=== PATIENT | female | born 1975 | race African-American/Black ===

== ENCOUNTER 2021-05-08 21:59 | Observation (INO) | payer OTHER ==
--- NOTE | 2021-05-08 22:25 | ED ---
Chest Pain HPI - General Chief Complaint: Chest Pain Stated Complaint: SOB Time Seen by Provider: 05/08/21 22:11 Source: patient Mode of arrival: wheelchair Limitations: no limitations - History of Present Illness Initial Comments: This patient is a 46-year-old woman who states she has history of asthma and states she is feeling like she is having a flareup. Patient states she is having nonproductive cough, wheezing, chest tightness. She indicates the sternal area. She states it feels typical of a flareup. No fever or chills. No sputum. No anginal symptoms. No leg pain or swelling. No change in urination or bowel movements. Patient states she thinks that it's because she had a relapse in smoking. MD Complaint: chest pain -: days(s) Onset: during rest Pain Location: substernal Pain Radiation: none Severity: moderate Quality: tightness Consistency: constant Improves With: nothing Worsens With: nothing Anginal Symptoms: dyspnea Other Symptoms: cough Treatments Prior to Arrival: none - Related Data Allergies Allergy/AdvReac Type Severity Reaction Status Date / Time acetaminophen [From Vicodin] AdvReac Nausea Verified 05/08/21 22:08 hydrocodone [From Vicodin] AdvReac Nausea Verified 05/08/21 22:08 Review of Systems ROS Statement: Those systems with pertinent positive or pertinent negative responses have been documented in the HPI. ROS Other: All systems not noted in ROS Statement are negative. Constitutional: Denies: fever, chills ENT: Denies: congestion Respiratory: Reports: as per HPI, cough, dyspnea, wheezes. Denies: hemoptysis Cardiovascular: Reports: as per HPI, chest pain. Denies: palpitations, orthopnea, edema, syncope Gastrointestinal: Denies: abdominal pain, nausea, vomiting, diarrhea Genitourinary: Denies: dysuria, hematuria Musculoskeletal: Denies: back pain Skin: Denies: rash Neurological: Denies: headache, weakness, numbness EKG Findings - EKG Results: EKG: interpreted by RASHID, sinus rhythm, normal axis, normal ST/T EKG shows: tachycardia (Rate 102 BPM) - Blocks, [place], Hypertrophy, ST Abn: Chamber hypertrophy or enlargement: left ventricular hypertrophy or enlargement (LVE) - NC, Pacemaker, Normal: Myocardial infarction: septal NC (old age or indeterminate) (Possible old septal infarct.) Past Medical History Past Medical History: Asthma, Diabetes Mellitus, Hypertension History of Any Multi-Drug Resistant Organisms: None Reported Past Surgical History: Section, Cholecystectomy Additional Past Surgical History / Comment(s): thyroidectomy Past Psychological History: Anxiety, Depression Smoking Status: Current every day smoker Past Alcohol Use History: Rare Past Drug Use History: Cocaine, Marijuana General Exam Limitations: no limitations General appearance: alert, in no apparent distress Head exam: Present: atraumatic, normocephalic Eye exam: Present: normal appearance. Absent: scleral icterus, conjunctival injection ENT exam: Present: normal oropharynx Neck exam: Present: normal inspection Respiratory exam: Present: wheezes (Trace wheeze). Absent: respiratory distress, rales, rhonchi, stridor, accessory muscle use, decreased breath sounds Cardiovascular Exam: Present: regular rate, normal rhythm, normal heart sounds. Absent: systolic murmur, diastolic murmur, rubs, gallop GI/Abdominal exam: Present: soft. Absent: distended, tenderness, guarding, rebound, rigid, mass Extremities exam: Present: normal inspection, normal capillary refill. Absent: pedal edema, calf tenderness Back exam: Present: normal inspection. Absent: CVA tenderness (R), CVA tenderness (L) Neurological exam: Present: alert. Absent: oriented X3, CN II-XII intact Skin exam: Present: warm, dry, intact, normal color. Absent: rash Course Vital Signs 05/08/21 05/08/21 05/08/21 22:01 22:33 23:32 Temperature 98.0 F Pulse Rate 103 H 86 Pulse Rate [ 105 H Left Pulse Oximetery] Respiratory 22 22 Rate Blood Pressure 145/97 O2 Sat by Pulse 100 Oximetry 05/08/21 05/09/21 23:47 01:26 Temperature 99.0 F Pulse Rate 88 88 Pulse Rate [ Left Pulse Oximetery] Respiratory 20 Rate Blood Pressure 179/104 O2 Sat by Pulse 100 Oximetry Disposition Clinical Impression: Chest pain Disposition: ADMITTED IP TO THIS HOSP Condition: Good Instructions (If sedation given, give patient instructions): Chest Pain (ED) Is patient prescribed a controlled substance at d/c from ED?: No Referrals: Etta Smith MD [Primary Care Provider] - 1-2 days
[2021-05-08] MEDS ORDERED: ALBUTEROL NEBULIZED 2.5 MG/3 ML INHALATION STA (22:33)
--- NOTE | 2021-05-08 22:59 | XR ---
EXAMINATION TYPE: XR chest 2V DATE OF EXAM: 05/08/2021 COMPARISON: NONE HISTORY: Short of breath TECHNIQUE: FINDINGS: Heart and mediastinum are normal. Lungs are clear. Diaphragm is normal. Bony thorax appears normal. There are chest leads. IMPRESSION: Normal chest.
[2021-05-08 23:02] LABS: Basophils % (A) 1 %; Eosinophils % (A) 1 %; HCT 42.7 % (34.0-46.0); HGB 14.4 gm/dL (11.4-16.0); Lymphocytes # (A) 2.5 k/uL (1.0-4.8); Lymphocytes % (A) 31 %; MCH 27.9 pg (25.0-35.0); MCHC 33.7 g/dL (31.0-37.0); MCV 82.9 fL (80.0-100.0); Mean Platelet Volume 7.4; Monocytes # (A) 0.5 k/uL (0-1.0); Monocytes % (A) 6 %; Neutrophils # (A) 4.8 k/uL (1.3-7.7); Neutrophils % (A) 60 %; Platelet Count 278 k/uL (150-450); RBC 5.16 m/uL (3.80-5.40); RDW 13.8 % (11.5-15.5)
[2021-05-08 23:21] LABS: Albumin 4.6 g/dL (3.5-5.0); Calcium 9.8 mg/dL (8.4-10.2); Potassium 2.8 mmol/L (3.5-5.1); Total Bilirubin 0.2 mg/dL (0.2-1.3); Total Protein 7.9 g/dL (6.3-8.2)
[2021-05-08 23:23] LABS: Partial Thromboplastin Time 22.4 sec (22.0-30.0); Prothrombin Time 10.4 sec (9.0-12.0)
[2021-05-09] MEDS ORDERED: SODIUM CHLORIDE 0.9% 500 ML 500 ML IV STA (00:23)
[2021-05-09] MEDS ORDERED: POTASSIUM BICARBONATE/CIT AC 20 MEQ TABLET.EFF PO ONE (01:00)
[2021-05-09] MEDS ORDERED: amLODIPine 10 MG TAB PO STA (01:29)
[2021-05-09] MEDS ORDERED: NITROGLYCERIN SL TABS 0.4 MG TAB SUBLINGUAL PRN (01:36)
[2021-05-09 06:14] VITALS: TEMP 99.2
[2021-05-09] MEDS: ALBUTEROL NEBULIZED 2.5 MG/3 ML INHALATION SCH ×3 (08:18→15:06)
[2021-05-09] MEDS ORDERED: amLODIPine 10 MG TAB PO SCH (09:00)
--- NOTE | 2021-05-09 09:27 | P.CRDCN ---
History of Present Illness Consult date: 05/09/21 History of present illness: HISTORY OF PRESENT ILLNESS: This is a 46-year-old female with a past medical history significant for hypertension, diabetes mellitus, asthma, and nicotine dependence. Patient is unaware of family history of cardiac disease as she was adopted. Patient recently established in the office with Dr. Packer who recommended echocardiogram and stress test. We have been asked to see the patient in consultation for pain. Patient examined at the bedside. Patient states she has been feeling short of breath since Sunday. She states she was having an "asthma attack". She states her shortness of breath was causing her increased anxiety which further worsened her shortness of breath. She states she was using her inhalers at home with minimal relief so she came to the emergency room for further evaluation. She reports a frequent nonproductive cough. She reports her chest feels sore this morning from coughing. Chest wall is tender with palpation. She states the pain is not worse with deep inspiration. Patient reports getting a nebulizer treatment this morning which resolved her shortness of breath. EKG reveals sinus tachycardia with nonspecific ST-T wave changes. Evidence of LVH Chest xray negative for acute process Laboratory data: WBC 8.0. Hemoglobin 14.4. Palate count 278. D-dimer 0.42. Sodium 144. Potassium 2.8. BUN 10. Creatinine 0.91. Lactic acid 2.4. Repeat 1.9. BNP 41. Troponin negative 3. Current home cardiac medications include hydrochlorothiazide 25 mg daily and Norvasc 5 mg daily REVIEW OF SYSTEMS: At the time of my exam: CONSTITUTIONAL: Denies fever or chills. HEENT: Denies blurred vision, vision changes, or eye pain. Denies hemoptysis CARDIOVASCULAR: Denies chest pain. Denies orthopnea. Denies PND. Denies palpitations RESPIRATORY: Reports mild shortness of breath. Reports nonproductive cough. GASTROINTESTINAL: Denies abdominal pain. Denies nausea or vomiting. HEMATOLOGIC: Denies bleeding disorders. GENITOURINARY: Denies any blood in urine. SKIN: Denies pruitis. Denies rash. PHYSICAL EXAM: VITAL SIGNS: Reviewed. GENERAL: Well-developed in no acute distress. HEENT: Head is normocephalic. Pupils are equal, round. Sclerae anicteric. Mucous membranes of the mouth are moist. Neck supple. No JVD or thyromegaly LUNGS: Respirations even and unlabored. Lungs diminished bilaterally with no wheezing or rales noted. HEART: Regular rate and rhythm. S1 and S2 heard. Chest wall tenderness with palpation ABDOMEN: Soft. Nondistended. Nontender. EXTREMITIES: Normal range of motion. No clubbing or cyanosis. Peripheral pulses intact. No lower extremity edema NEUROLOGIC: Awake and alert. Oriented x 3. ASSESSMENT: Shortness of breath Asthma exacerbation Chest pain, atypical, troponin negative 3 Elevated lactic acid Hypokalemia Hypertension Diabetes mellitus Nicotine dependence, patient smokes 1/2 PPD PLAN: An acute coronary event has been ruled out Obtain 2-D echo to assess cardiac structure and function Smoking cessation recommended Recheck potassium. Replace as needed Monitor blood pressure. Norvasc has been increased per emergency room physician to 10 mg daily Patient to undergo outpatient stress test Further recommendations pending patient's course Nurse practitioner note has been reviewed by physician. Signing provider agrees with the documented findings, assessment, and plan of care. Past Medical History Past Medical History: Asthma, Diabetes Mellitus, Hypertension History of Any Multi-Drug Resistant Organisms: None Reported Past Surgical History: Section, Cholecystectomy Additional Past Surgical History / Comment(s): thyroidectomy Past Psychological History: Anxiety, Depression Smoking Status: Current every day smoker Past Alcohol Use History: Rare Past Drug Use History: Cocaine, Marijuana Medications and Allergies Home Medications Medication Instructions Recorded Confirmed Type Albuterol Sulfate [Ventolin HFA] 2 puff INHALATION RT-Q6H PRN 05/09/21 05/09/21 History Ergocalciferol (Vitamin D2) 1,250 mcg PO Q14D 05/09/21 05/09/21 History [Drisdol (50,000 Iu)] Naproxen 500 mg PO DAILY PRN 05/09/21 05/09/21 History amLODIPine [Norvasc] 5 mg PO DAILY 05/09/21 05/09/21 History busPIRone HCl [Buspar] 10 mg PO BID PRN 05/09/21 05/09/21 History hydroCHLOROthiazide [Hydrodiuril] 25 mg PO DAILY 05/09/21 05/09/21 History metFORMIN HCL [Glucophage] 500 mg PO DAILY 05/09/21 05/09/21 History Allergies Allergy/AdvReac Type Severity Reaction Status Date / Time acetaminophen [From Vicodin] AdvReac Nausea Verified 05/08/21 22:08 hydrocodone [From Vicodin] AdvReac Nausea Verified 05/08/21 22:08 Physical Exam Vitals: Vital Signs Temp Pulse Pulse Resp BP Pulse Ox 05/09/21 08:21 86 05/09/21 08:17 86 16 154/102 95 05/09/21 06:05 99.2 F 104 H 20 141/69 100 05/09/21 01:26 99.0 F 88 20 179/104 100 05/08/21 23:47 88 05/08/21 23:32 86 05/08/21 22:33 105 H 22 05/08/21 22:01 98.0 F 103 H 22 145/97 100 Intake and Output 05/08/21 05/09/21 05/09/21 22:59 06:59 14:59 Other: Weight 86.183 kg Results 05/08/21 22:43 05/08/21 22:43 Cardiac Enzymes 05/08/21 05/08/21 05/09/21 Range/Units 22:43 22:43 02:10 AST 33 (14-36) U/L Troponin I 0.015 0.026 (0.000-0.034) ng/mL 05/09/21 Range/Units 04:23 AST (14-36) U/L Troponin I 0.032 (0.000-0.034) ng/mL Coagulation 05/08/21 Range/Units 22:43 PT 10.4 (9.0-12.0) sec APTT 22.4 (22.0-30.0) sec CBC 05/08/21 Range/Units 22:43 WBC 8.0 (3.8-10.6) k/uL RBC 5.16 (3.80-5.40) m/uL Hgb 14.4 (11.4-16.0) gm/dL Hct 42.7 (34.0-46.0) % Plt Count 278 (150-450) k/uL Comprehensive Metabolic Panel 05/08/21 Range/Units 22:43 Sodium 144 (137-145) mmol/L Potassium 2.8 L (3.5-5.1) mmol/L Chloride 106 (98-107) mmol/L Carbon Dioxide 27 (22-30) mmol/L BUN 10 (7-17) mg/dL Creatinine 0.91 (0.52-1.04) mg/dL Glucose 112 H (74-99) mg/dL Calcium 9.8 (8.4-10.2) mg/dL AST 33 (14-36) U/L ALT 19 (4-34) U/L Alkaline Phosphatase 87 (38-126) U/L Total Protein 7.9 (6.3-8.2) g/dL Albumin 4.6 (3.5-5.0) g/dL Current Medications Generic Name Dose Route Start Last Admin Trade Name Freq PRN Reason Stop Dose Admin Albuterol Sulfate 2.5 mg 05/09/21 08:00 05/09/21 08:18 Albuterol Nebulized 2.5 Mg/3 Ml INHALATION 2.5 mg RT-QID OSCAR Administration Amlodipine Besylate 10 mg 05/09/21 09:00 05/09/21 08:18 Amlodipine 10 Mg Tab PO 10 mg DAILY OSCAR Administration Aspirin 81 mg 05/10/21 09:00 Aspirin 81 Mg PO DAILY [facility] Nitroglycerin 0.4 mg 05/09/21 01:36 Nitroglycerin Sl Tabs 0.4 Mg Tab SUBLINGUAL Q5M PRN Chest Pain Intake and Output 05/08/21 05/09/21 05/09/21 22:59 06:59 14:59 Other: Weight 86.183 kg 05/08/21 22:43 05/08/21 22:43
[2021-05-09] MEDS ORDERED: busPIRone HCl 10 MG TAB PO PRN (10:02)
[2021-05-09] MEDS ORDERED: POTASSIUM CHLORIDE ER 20 MEQ TAB.ER PO STA (10:02)
[2021-05-09] MEDS ORDERED: ALBUTEROL NEBULIZED 2.5 MG/3 ML INHALATION PRN (10:02)
[2021-05-09] MEDS ORDERED: NAPROXEN 250 MG TAB PO PRN (10:02)
[2021-05-09] MEDS ORDERED: amLODIPine 5 MG TAB PO SCH (10:15)
[2021-05-09 10:40] VITALS: RESP 18
[2021-05-09] MEDS ORDERED: POTASSIUM CHLORIDE ER 20 MEQ TAB.ER PO ONE (11:45)
[2021-05-09 11:54] LABS: African American GFR (CKD) 103.2 (60.0-200.0); Anion Gap 11.5 mmol/L (4.00-12.00); BUN/Creat Ratio 11.25 Ratio (12.00-20.00); Calcium 9.1 mg/dL (8.7-10.3); Carbon Dioxide 27.5 mmol/L (21.6-31.8); Magnesium 1.9 mg/dL (1.5-2.4); Potassium 3.2 mmol/L (3.5-5.5)
--- NOTE | 2021-05-09 14:08 | P.HPIM ---
History of Present Illness 46-year-old pleasant female with known history of asthma and medical ALLERGIES came in with the comments of shortness of breath was wheezing yesterday and patient had significant improvement in her shortness of breath after a breathing treatments. Patient is not wheezing today clinically doing well and wanted to go home. Patient also comparing a pressure-like chest pain in the epigastric and retrosternal area appears to be secondary to bronchospasm this is relieved with the breathing treatments. 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 Patient is also severely hyponatremic potassium will be replaced and patient is on hydrochlorothiazide, patient will need potassium supplementation with this medication. Was comparing of cough with whitish sputum production. Review of Systems REVIEW OF SYSTEMS: CONSTITUTIONAL: No fever, no malaise, no fatigue. HEENT: No recent visual problems or hearing problems. Denied any sore throat. CARDIOVASCULAR: No chest pain, orthopnea, PND, no palpitations, no syncope. PULMONARY: no hemoptysis. GASTROINTESTINAL: No diarrhea, no nausea, no vomiting, no abdominal pain. NEUROLOGICAL: No headaches, no weakness, no numbness. HEMATOLOGICAL: Denies any bleeding or petechiae. GENITOURINARY: Denies any burning micturition, frequency, or urgency. MUSCULOSKELETAL/RHEUMATOLOGICAL: Denies any joint pain, swelling, or any muscle pain. ENDOCRINE: Denies any polyuria or polydipsia. The rest of the 14-point review of systems is negative. Past Medical History Past Medical History: Asthma, Cancer, Diabetes Mellitus, Hypertension, Thyroid Disorder Additional Past Medical History / Comment(s): Thyroid cancer with surgery, NIDDM type II, neuropathy back of bilateral lower legs and R arm, R eye deviates since /vision is normal, low back pain/sciatica, occasional vertigo. History of Any Multi-Drug Resistant Organisms: None Reported Past Surgical History: Section, Cholecystectomy Additional Past Surgical History / Comment(s): Thyroid/90% removed, back injections. Past Anesthesia/Blood Transfusion Reactions: No Reported Reaction Smoking Status: Current every day smoker - Past Family History Father Family Medical History: Liver Disease Additional Family Medical History / Comment(s): Father of liver cirrhosis/ETOH abuse and at the age of 56yrs. Mother Additional Family Medical History / Comment(s): Mother had anemia and of a CT at the age of 36yrs. Medications and Allergies Home Medications Medication Instructions Recorded Confirmed Type Albuterol Sulfate [Ventolin HFA] 2 puff INHALATION RT-Q6H PRN 05/09/21 05/09/21 History Ergocalciferol (Vitamin D2) 1,250 mcg PO Q14D 05/09/21 05/09/21 History [Drisdol (50,000 Iu)] Mometasone/Formoterol [Dulera 100 1 puff PO BID #1 inhaler 05/09/21 Rx Mcg-5 Mcg Inhaler] Naproxen 500 mg PO DAILY PRN 05/09/21 05/09/21 History Potassium Chloride ER [K-Dur 20] 20 meq PO DAILY #30 tab 05/09/21 Rx amLODIPine [Norvasc] 5 mg PO DAILY 05/09/21 05/09/21 History busPIRone HCl [Buspar] 10 mg PO BID PRN 05/09/21 05/09/21 History glipiZIDE XL [Glucotrol XL] 5 mg PO DAILY #10 tab 05/09/21 Rx hydroCHLOROthiazide [Hydrodiuril] 25 mg PO DAILY 05/09/21 05/09/21 History metFORMIN HCL [Glucophage] 500 mg PO DAILY 05/09/21 05/09/21 History methylPREDNISolone Dose Pack 4 mg PO DIRECTED #21 package 05/09/21 Rx [Medrol Dose Pack] Allergies Allergy/AdvReac Type Severity Reaction Status Date / Time acetaminophen [From Vicodin] AdvReac Nausea Verified 05/08/21 22:08 hydrocodone [From Vicodin] AdvReac Nausea Verified 05/08/21 22:08 Physical Exam Vitals: Vital Signs Temp Pulse Pulse Resp BP Pulse Ox 05/09/21 10:39 102 H 18 155/105 98 05/09/21 08:21 86 05/09/21 08:17 86 16 154/102 95 05/09/21 06:05 99.2 F 104 H 20 141/69 100 05/09/21 01:26 99.0 F 88 20 179/104 100 05/08/21 23:47 88 05/08/21 23:32 86 05/08/21 22:33 105 H 22 05/08/21 22:01 98.0 F 103 H 22 145/97 100 Intake and Output 05/08/21 05/09/21 05/09/21 22:59 06:59 14:59 Other: Weight 86.183 kg 86.183 kg PHYSICAL EXAMINATION: GENERAL: The patient is alert and oriented x3, not in any acute distress. Well developed, well nourished. HEENT: Pupils are round and equally reacting to light. EOMI. No scleral icterus. No conjunctival pallor. Normocephalic, atraumatic. No pharyngeal erythema. No thyromegaly. CARDIOVASCULAR: S1 and S2 present. No murmurs, rubs, or gallops. PULMONARY: Chest is clear to auscultation, no wheezing or crackles. ABDOMEN: Soft, nontender, nondistended, normoactive bowel sounds. No palpable organomegaly. MUSCULOSKELETAL: No joint swelling or deformity. EXTREMITIES: No cyanosis, clubbing, or pedal edema. NEUROLOGICAL: Gross neurological examination did not reveal any focal deficits. SKIN: No rashes. Results CBC & Chem 7: 05/08/21 22:43 05/09/21 08:42 Labs: Abnormal Lab Results - Last 24 Hours (Table) 05/08/21 05/08/21 05/09/21 Range/Units 22:43 22:43 08:42 Potassium 2.8 L 3.2 L (3.5-5.1) mmol/L BUN/Creatinine Ratio 11.25 L (12.00-20.00) Ratio Glucose 112 H 151 H (74-99) mg/dL Plasma Lactic Acid Sulaiman 2.4 H* (0.7-2.0) mmol/L Thrombosis Risk Factor Assmnt - Choose All That Apply Any of the Below Risk Factors Present?: Yes Each Factor Represents 1 point: Age 41-60 years, Obesity (BMI >25) Other Risk Factors: Yes Each Risk Factor Represents 2 Points: Malignancy Other congenital or acquired thrombophilia - If yes, enter type in comment: No Thrombosis Risk Factor Assessment Total Risk Factor Score: 4 Thrombosis Risk Factor Assessment Level: Moderate Risk Assessment and Plan Plan: -Shortness of breath: Secondary to asthma exacerbation patient hasn't been improvement, will be discharged on Medrol Dosepak along with Medrol Dosepak patient was given a glipizide and patient will continue his glipizide as long as she is on steroids. Patient was discharged on inhaled steroids and patient will continue with her albuterol inhaler. Patient appears to have moderate intermittent asthma. -Chest pressure like sensation secondary to bronchospasm rule out acute coronary syndromes patient will undergo stress test as an outpatient -Hypokalemia secondary to hydrochlorothiazide. Patient was discharged on potassium chloride supplementation. Repeat basic metabolic profile will be obtained in 3 days -Hypertension - mild lactic acidosis secondary to intravascular depletion, improved with IV fluids. He is also on metformin. Metformin can cause lactic acidosis and not discontinue this medication at this time but need to repeat lactic acid again as an outpatient and the patient can use to have lactic acidosis consider discontinuation of metformin at that time. Patient will be discharged today
--- NOTE | 2021-05-09 14:08 | P.DS ---
Providers Date of admission: 05/09/21 01:36 Attending physician: Sahil Milan Consults: 05/09/21 01:36 Consult Physician Routine Consulting Provider: Donald Siu Consult Reason/Comments: atypical chest pain Do you want consulting provider notified?: Yes Primary care physician: [facility] Course: As mentioned in HPI Patient Condition at Discharge: Good Plan - Discharge Summary Discharge Rx Participant: No New Discharge Prescriptions: New methylPREDNISolone Dose Pack [Medrol Dose Pack] 4 mg PO DIRECTED #21 package Mometasone/Formoterol [Dulera 100 Mcg-5 Mcg Inhaler] 1 puff PO BID #1 inhaler Potassium Chloride ER [K-Dur 20] 20 meq PO DAILY #30 tab glipiZIDE XL [Glucotrol XL] 5 mg PO DAILY #10 tab Continue Albuterol Sulfate [Ventolin HFA] 2 puff INHALATION RT-Q6H PRN PRN Reason: Shortness Of Breath Naproxen 500 mg PO DAILY PRN PRN Reason: Pain Ergocalciferol (Vitamin D2) [Drisdol (50,000 Iu)] 1,250 mcg PO Q14D hydroCHLOROthiazide [Hydrodiuril] 25 mg PO DAILY busPIRone HCl [Buspar] 10 mg PO BID PRN PRN Reason: Anxiety amLODIPine [Norvasc] 5 mg PO DAILY metFORMIN HCL [Glucophage] 500 mg PO DAILY Discharge Medication List Albuterol Sulfate [Ventolin HFA] 2 puff INHALATION RT-Q6H PRN 05/09/21 [History] Ergocalciferol (Vitamin D2) [Drisdol (50,000 Iu)] 1,250 mcg PO Q14D 05/09/21 [History] Mometasone/Formoterol [Dulera 100 Mcg-5 Mcg Inhaler] 1 puff PO BID #1 inhaler 05/09/21 [Rx] Naproxen 500 mg PO DAILY PRN 05/09/21 [History] Potassium Chloride ER [K-Dur 20] 20 meq PO DAILY #30 tab 05/09/21 [Rx] amLODIPine [Norvasc] 5 mg PO DAILY 05/09/21 [History] busPIRone HCl [Buspar] 10 mg PO BID PRN 05/09/21 [History] glipiZIDE XL [Glucotrol XL] 5 mg PO DAILY #10 tab 05/09/21 [Rx] hydroCHLOROthiazide [Hydrodiuril] 25 mg PO DAILY 05/09/21 [History] metFORMIN HCL [Glucophage] 500 mg PO DAILY 05/09/21 [History] methylPREDNISolone Dose Pack [Medrol Dose Pack] 4 mg PO DIRECTED #21 package 05/09/21 [Rx] Follow up Appointment(s)/Referral(s): Etta Smith MD [Primary Care Provider] - 3 Days Nicolás Packer MD [STAFF PHYSICIAN] - 1 Week Ambulatory/Diagnostic Orders: Basic Metabolic Panel [LAB.AMB] Time Frame: 3 Days, Location: None Selected Patient Instructions/Handouts: Chest Pain (ED)
[2021-05-09 15:34] VITALS: BP 126/99; PULSE 96
[2021-05-10] MEDS ORDERED: metFORMIN 500 MG TAB PO SCH (07:30)
[2021-05-10] MEDS ORDERED: hydroCHLOROthiazide 25 MG TAB PO SCH (09:00)
[2021-05-10] MEDS ORDERED: ASPIRIN 325 MG TAB PO SCH (09:00)
[2021-05-10] MEDS ORDERED: ASPIRIN 81 MG PO SCH (09:00)
--- NOTE | 2021-05-10 11:03 | ECHOF ---
Referral Reason: MEASUREMENTS -------- HEIGHT: 154.9 cm WEIGHT: 86.2 kg BP: 155/105 RVIDd: 3.3 cm (< 3.3) IVSd: 1.8 cm (0.6 - 1.1) LVIDd: 3.8 cm (3.9 - 5.3) LVPWd: 1.6 cm (0.6 - 1.1) IVSs: 2.4 cm LVIDs: 2.3 cm LVPWs: 2.4 cm LAESV Index (A-L): 15.13 ml/m Ao Diam: 3.6 cm (2.0 - 3.7) AV Cusp: 2.0 cm (1.5 - 2.6) LA Diam: 3.6 cm (2.7 - 3.8) MV EXCURSION: 17.701 mm (> 18.000) MV EF SLOPE: 53 mm/s (70 - 150) EPSS: 0.6 cm MV E Anthony: 0.72 m/s MV DecT: 206 ms MV A Anthony: 1.00 m/s MV E/A Ratio: 0.72 RAP: 5.00 mmHg RVSP: 32.09 mmHg FINDINGS -------- Sinus rhythm. This was a technically adequate study. The left ventricular size is normal. There is severe concentric left ventricular hypertrophy. Ove rall left ventricular systolic function is normal with, an EF between 55 - 60 %. The diastolic fill ing pattern is normal for the age of the patient 12.68. The right ventricle is mildly enlarged. Normal LA size by volume 22+/-6 ml/m2. The right atrial size is normal. Interatrial and interventricular septum intact. The aortic valve is trileaflet, and appears structurally normal. No aortic stenosis or regurgitation. Normal appearing mitral valve. The tricuspid valve appears structurally normal. Mild tricuspid regurgitation present. Right vent ricular systolic pressure is normal at < 35 mmHg. The right ventricular systolic pressure, as measu red by Doppler, is 32.09mmHg. There is no pulmonic regurgitation present. The aortic root size is normal. IVC Not well visulized. There is no pericardial effusion. CONCLUSIONS -------- 1. There is severe concentric left ventricular hypertrophy. 2. Overall left ventricular systolic function is normal with, an EF between 55 - 60 %. 3. The right ventricle is mildly enlarged. 4. Normal LA size by volume 22+/-6 ml/m2. 5. The aortic valve is trileaflet, and appears structurally normal. No aortic stenosis or regurgitati on. 6. Normal appearing mitral valve. 7. Mild tricuspid regurgitation present. 8. There is no pericardial effusion. CHIROPRACTIC ASSISTANT: Katelyn Sterling RDCS
[2021-05-16] MEDS ORDERED: ERGOCALCIFEROL 1,250 MCG (50,000 IU) CAPSULE PO SCH (09:00)
== END 2021-05-09 15:35 | disposition home or self-care (01) ==
LOC: EC 21:59 → 6NMEDSUR 05-09 01:36
PROVIDERS: ADMIT Hospitalist; ATTEND Hospitalist
DX: J45.21 Mild intermittent asthma with (acute) exacerbation (principal); E87.2 Acidosis; E86.9 Volume depletion, unspecified; I11.9 Hypertensive heart disease without heart failure; E11.42 Type 2 diabetes mellitus with diabetic polyneuropathy; R07.89 Other chest pain; E89.0 Postprocedural hypothyroidism; E87.1 Hypo-osmolality and hyponatremia; F17.210 Nicotine dependence, cigarettes, uncomplicated; E87.6 Hypokalemia; T50.2X5A Adverse effect of carbonic-anhydrase inhibitors, benzothiadiazides and other diuretics, initial encounter; I25.2 Old myocardial infarction; M54.40 Lumbago with sciatica, unspecified side; I36.1 Nonrheumatic tricuspid (valve) insufficiency; F32.9 Major depressive disorder, single episode, unspecified; F41.9 Anxiety disorder, unspecified; E66.9 Obesity, unspecified; Z68.35 Body mass index [BMI] 35.0-35.9, adult; Q15.8 Other specified congenital malformations of eye; Z20.822 Contact with and (suspected) exposure to COVID-19; Z79.84 Long term (current) use of oral hypoglycemic drugs; Z79.1 Long term (current) use of non-steroidal anti-inflammatories (NSAID); Z79.899 Other long term (current) drug therapy; Z88.5 Allergy status to narcotic agent; Z88.6 Allergy status to analgesic agent; Z90.49 Acquired absence of other specified parts of digestive tract; Z85.850 Personal history of malignant neoplasm of thyroid; Z98.891 History of uterine scar from previous surgery; Z83.2 Family history of diseases of the blood and blood-forming organs and certain disorders involving the immune mechanism; Z82.49 Family history of ischemic heart disease and other diseases of the circulatory system; Z81.1 Family history of alcohol abuse and dependence; Z83.79 Family history of other diseases of the digestive system
CPT/HCPCS: 96360; 99285; 36415; 94640 ×2; 93005; 93306; 85379; 83880; 80053; 80048; 83605 ×2; 83735 ×2; 84484 ×2; 85025; 85610; 85730; 87635; 71046; G0378

== ENCOUNTER 2021-05-14 23:36 | Emergency (ER) | payer OTHER ==
[2021-05-14 23:42] VITALS: TEMP 97.2
[2021-05-15] MEDS ORDERED: SODIUM CHLORIDE 0.9% 1,000 ML IV STA (00:03)
[2021-05-15] MEDS ORDERED: LORazepam 2 MG/ML INJ IV STA (00:17)
--- NOTE | 2021-05-15 00:34 | ED ---
SOB HPI - General Chief Complaint: Shortness of Breath Stated Complaint: Chest Pain Time Seen by Provider: 05/14/21 23:53 Source: patient, EMS Mode of arrival: EMS Limitations: no limitations - History of Present Illness Initial Comments: 46 year-old female patient presents to the emergency department today for evaluation of shortness of breath and chest tightness. Patient states that she was walking home from the store when she started to have symptoms. She tried her inhaler, it didn't help so she called an ambulance. Patient states she is having tightness across her chest and into her left shoulder. States she was feeling nauseated and having sweats. She thinks she may be having an anxiety attack. States that she is out of her buspar. She also found that her blood sugar was elevated, states she was given metformin but has not taken it. States she was going to try to change her diet instead. She denies cough or congestion. Denies fever or chills. She was admitted last week for similar symptoms and underwent evaluation by cardiology. Patient denies any recent rash, fever, chills, abdominal pain, diarrhea, constipation, numbness, tingling, dizziness, weakness, hematuria, dysuria, urinary urgency, urinary frequency, headache, visual reyna ges, or any other complaints. - Related Data Home Medications Medication Instructions Recorded Confirmed Albuterol Sulfate [Ventolin HFA] 2 puff INHALATION RT-Q6H PRN 05/09/21 05/09/21 Ergocalciferol (Vitamin D2) 1,250 mcg PO Q14D 05/09/21 05/09/21 [Drisdol (50,000 Iu)] Naproxen 500 mg PO DAILY PRN 05/09/21 05/09/21 amLODIPine [Norvasc] 5 mg PO DAILY 05/09/21 05/09/21 busPIRone HCl [Buspar] 10 mg PO BID PRN 05/09/21 05/09/21 hydroCHLOROthiazide [Hydrodiuril] 25 mg PO DAILY 05/09/21 05/09/21 metFORMIN HCL [Glucophage] 500 mg PO DAILY 05/09/21 05/09/21 Previous Rx's Medication Instructions Recorded Mometasone/Formoterol [Dulera 100 1 puff PO BID #1 inhaler 05/09/21 Mcg-5 Mcg Inhaler] Potassium Chloride ER [K-Dur 20] 20 meq PO DAILY #30 tab 05/09/21 glipiZIDE XL [Glucotrol XL] 5 mg PO DAILY #10 tab 05/09/21 methylPREDNISolone Dose Pack 4 mg PO DIRECTED #21 package 05/09/21 [Medrol Dose Pack] busPIRone HCl [Buspar] 10 mg PO BID #60 tab 05/15/21 Allergies Allergy/AdvReac Type Severity Reaction Status Date / Time acetaminophen [From Vicodin] AdvReac Nausea Verified 05/14/21 23:41 hydrocodone [From Vicodin] AdvReac Nausea Verified 05/14/21 23:41 Review of Systems ROS Statement: Those systems with pertinent positive or pertinent negative responses have been documented in the HPI. ROS Other: All systems not noted in ROS Statement are negative. Past Medical History Past Medical History: Asthma, Cancer, Diabetes Mellitus, Hypertension, Thyroid Disorder Additional Past Medical History / Comment(s): Thyroid cancer with surgery, NIDDM type II, neuropathy back of bilateral lower legs and R arm, R eye deviates since /vision is normal, low back pain/sciatica, occasional vertigo. History of Any Multi-Drug Resistant Organisms: None Reported Past Surgical History: Section, Cholecystectomy Additional Past Surgical History / Comment(s): Thyroid/90% removed, back injections. Past Anesthesia/Blood Transfusion Reactions: No Reported Reaction Past Psychological History: Anxiety, Depression Smoking Status: Current every day smoker Past Alcohol Use History: Occasional Past Drug Use History: None Reported - Past Family History Father Family Medical History: Liver Disease Additional Family Medical History / Comment(s): Father of liver cirrhosis/ETOH abuse and at the age of 56yrs. Mother Additional Family Medical History / Comment(s): Mother had anemia and of a CT at the age of 36yrs. General Exam Limitations: no limitations General appearance: alert, in no apparent distress, other (This is a well-dev eloped, well-nourished adult female patient in no acute distress. Vital signs upon presentation are temperature 97.2F, pulse 66, respirations 18, blood pressure 185/108, O2 sat 98% on room air.) Eye exam: Present: normal appearance, PERRL, EOMI. Absent: scleral icterus, c onjunctival injection, periorbital swelling ENT exam: Present: normal exam, normal oropharynx, mucous membranes moist Respiratory exam: Present: normal lung sounds bilaterally. Absent: respiratory distress, wheezes, rales, rhonchi, stridor Cardiovascular Exam: Present: regular rate, normal rhythm, normal heart sounds. Absent: systolic murmur, diastolic murmur, rubs, gallop, clicks GI/Abdominal exam: Present: soft, normal bowel sounds. Absent: distended, tenderness, guarding, rebound, rigid Neurological exam: Present: alert, oriented X3, CN II-XII intact Psychiatric exam: Present: anxious. Absent: homicidal ideation, suicidal ideation Skin exam: Present: warm, dry, intact, normal color. Absent: rash Course Vital Signs 05/14/21 05/14/21 05/14/21 23:38 23:41 23:48 Temperature 97.2 F L Pulse Rate 66 Respiratory 16 Rate Blood Pressure 185/108 O2 Sat by Pulse 98 Oximetry 05/15/21 05/15/21 05/15/21 00:20 01:00 01:34 Temperature Pulse Rate Respiratory 18 Rate Blood Pressure 184/107 157/95 O2 Sat by Pulse 105 H Oximetry 05/15/21 02:00 Temperature Pulse Rate 110 H Respiratory 16 Rate Blood Pressure 146/86 O2 Sat by Pulse 98 Oximetry Medical Decision Making - Medical Decision Making 46-year-old female patient presents to the emergency department today for evaluation of chest tightness and shortness of breath that started while she was walking home from the store. Physical examination is unremarkable. Lungs are clear to auscultation with good air movement. Vital signs within normal range. EKG showed sinus rhythm with no ST elevation or depression. Labs reviewed and were unremarkable at than elevated blood sugar. Patient was recently diagnosed with type 2 diabetes, is currently taking steroids. Has not been taking any of her diabetes medication because she was unsure about side effects and other issu es related taking it. I did discuss findings and results with her. We did discuss taking her medication. I will refill her BuSpar for anxiety. She is instructed follow up with her primary care physician for recheck Sunday. Return parameters were discussed in detail. She verbalizes understanding and agrees with this plan. My attending is Dr. Augustin. - Lab Data Result diagrams: 05/15/21 00:41 05/15/21 00:41 Lab Results 05/15/21 05/15/21 05/15/21 Range/Units 00:41 00:41 00:41 WBC 9.8 (3.8-10.6) k/uL RBC 4.66 (3.80-5.40) m/uL Hgb 13.2 (11.4-16.0) gm/dL Hct 39.1 (34.0-46.0) % MCV 83.9 (80.0-100.0) fL MCH 28.4 (25.0-35.0) pg MCHC 33.8 (31.0-37.0) g/dL RDW 14.0 (11.5-15.5) % Plt Count 232 (150-450) k/uL MPV 7.9 Neutrophils % 82 % Lymphocytes % 12 % Monocytes % 4 % Eosinophils % 1 % Basophils % 0 % Neutrophils # 8.0 H (1.3-7.7) k/uL Lymphocytes # 1.2 (1.0-4.8) k/uL Monocytes # 0.4 (0-1.0) k/uL Eosinophils # 0.1 (0-0.7) k/uL Basophils # 0.0 (0-0.2) k/uL PT 10.0 (9.0-12.0) sec INR 0.9 (<1.2) APTT 21.4 L (22.0-30.0) sec Sodium 137 (137-145) mmol/L Potassium 4.0 (3.5-5.1) mmol/L Chloride 104 (98-107) mmol/L Carbon Dioxide 25 (22-30) mmol/L Anion Gap 8 mmol/L BUN 17 (7-17) mg/dL Creatinine 0.69 (0.52-1.04) mg/dL Est GFR (CKD-EPI)AfAm >90 (>60 ml/min/1.73 sqM) Est GFR (CKD-EPI)NonAf >90 (>60 ml/min/1.73 sqM) Glucose 258 H (74-99) mg/dL POC Glucose (mg/dL) (75-99) mg/dL POC Glu Blind Slat Stapling Machine Operator ID Calcium 9.3 (8.4-10.2) mg/dL Magnesium 2.0 (1.6-2.3) mg/dL Total Bilirubin <0.1 L (0.2-1.3) mg/dL AST 24 (14-36) U/L ALT 23 (4-34) U/L Alkaline Phosphatase 76 (38-126) U/L Troponin I (0.000-0.034) ng/mL Total Protein 7.3 (6.3-8.2) g/dL Albumin 4.2 (3.5-5.0) g/dL Acetone, Qual Negative (Negative) 05/15/21 05/15/21 05/15/21 Range/Units 00:41 02:04 02:42 WBC (3.8-10.6) k/uL RBC (3.80-5.40) m/uL Hgb (11.4-16.0) gm/dL Hct (34.0-46.0) % MCV (80.0-100.0) fL MCH (25.0-35.0) pg MCHC (31.0-37.0) g/dL RDW (11.5-15.5) % Plt Count (150-450) k/uL MPV Neutrophils % % Lymphocytes % % Monocytes % % Eosinophils % % Basophils % % Neutrophils # (1.3-7.7) k/uL Lymphocytes # (1.0-4.8) k/uL Monocytes # (0-1.0) k/uL Eosinophils # (0-0.7) k/uL Basophils # (0-0.2) k/uL PT (9.0-12.0) sec INR (<1.2) APTT (22.0-30.0) sec Sodium (137-145) mmol/L Potassium (3.5-5.1) mmol/L Chloride (98-107) mmol/L Carbon Dioxide (22-30) mmol/L Anion Gap mmol/L BUN (7-17) mg/dL Creatinine (0.52-1.04) mg/dL Est GFR (CKD-EPI)AfAm (>60 ml/min/1.73 sqM) Est GFR (CKD-EPI)NonAf (>60 ml/min/1.73 sqM) Glucose (74-99) mg/dL POC Glucose (mg/dL) 254 H 255 H (75-99) mg/dL POC Glu Blind Slat Stapling Machine Operator ID Joy Anaya McKenna Calcium (8.4-10.2) mg/dL Magnesium (1.6-2.3) mg/dL Total Bilirubin (0.2-1.3) mg/dL AST (14-36) U/L ALT (4-34) U/L Alkaline Phosphatase (38-126) U/L Troponin I <0.012 (0.000-0.034) ng/mL Total Protein (6.3-8.2) g/dL Albumin (3.5-5.0) g/dL Acetone, Qual (Negative) - Radiology Data Radiology results: report reviewed, image reviewed Disposition Clinical Impression: Shortness of breath, Chest tightness Disposition: HOME SELF-CARE Condition: Good Instructions (If sedation given, give patient instructions): Chest Pain (ED), Type 2 Diabetes in Adults: New Diagnosis (ED), Shortness of Breath (ED) Additional Instructions: Follow up with the primary care physician for recheck in 1-2 days. Take metformin as you have been prescribed. Return to the emergency department for any new, worsening, or concerning symptoms per Prescriptions: busPIRone HCl [Buspar] 10 mg PO BID #60 tab Is patient prescribed a controlled substance at d/c from ED?: No Referrals: Etta Smith MD [Primary Care Provider] - 1-2 days Time of Disposition: 02:49
--- NOTE | 2021-05-15 00:36 | XR ---
EXAMINATION TYPE: XR chest 2V DATE OF EXAM: 05/15/2021 COMPARISON: 05/08/2021 HISTORY: Short of breath TECHNIQUE: FINDINGS: There is no heart failure nor confluent pneumonic infiltrate. Costophrenic angles are clear . There are chest leads. The bony thorax is intact IMPRESSION: No active cardiopulmonary disease. No change.
[2021-05-15] MEDS ORDERED: hydrALAZINE HCL 20 MG/ML 1 ML VIAL IVP STA (00:47)
[2021-05-15 00:59] LABS: Basophils % (A) 0 %; Eosinophils # (A) 0.1 k/uL (0-0.7); Eosinophils % (A) 1 %; HCT 39.1 % (34.0-46.0); HGB 13.2 gm/dL (11.4-16.0); Lymphocytes # (A) 1.2 k/uL (1.0-4.8); Lymphocytes % (A) 12 %; MCH 28.4 pg (25.0-35.0); MCHC 33.8 g/dL (31.0-37.0); MCV 83.9 fL (80.0-100.0); Mean Platelet Volume 7.9; Monocytes # (A) 0.4 k/uL (0-1.0); Monocytes % (A) 4 %; Neutrophils % (A) 82 %; Platelet Count 232 k/uL (150-450); RBC 4.66 m/uL (3.80-5.40); WBC 9.8 k/uL (3.8-10.6)
[2021-05-15 01:10] LABS: ALT 23 U/L (4-34); AST 24 U/L (14-36); African American GFR (CKD) >90 (>60 ml/min/1.73 sqM); Albumin 4.2 g/dL (3.5-5.0); Alkaline Phosphatase 76 U/L (38-126); Anion Gap 8 mmol/L; Blood Urea Nitrogen 17 mg/dL (7-17); Calcium 9.3 mg/dL (8.4-10.2); Carbon Dioxide 25 mmol/L (22-30); Chloride 104 mmol/L (98-107); Glucose 258 mg/dL (74-99); Non-African American GFR(CKD) >90 (>60 ml/min/1.73 sqM); Sodium 137 mmol/L (137-145); Total Bilirubin <0.1 mg/dL (0.2-1.3); Total Protein 7.3 g/dL (6.3-8.2)
[2021-05-15] MEDS ORDERED: INSULIN ASPART (NovoLOG) 100 UNIT/ML VIAL SQ STA (01:13)
[2021-05-15 01:16] LABS: INR 0.9 (<1.2)
[2021-05-15 01:19] LABS: Partial Thromboplastin Time 21.4 sec (22.0-30.0)
[2021-05-15 02:08] LABS: Glucose,Whole Blood 254 mg/dL (75-99)
[2021-05-15 02:45] LABS: Glucose,Whole Blood 255 mg/dL (75-99)
[2021-05-15 03:10] VITALS: BP 153/97; PULSE 96; RESP 20
== END 2021-05-15 03:00 | disposition home or self-care (01) ==
LOC: EC 23:36
DX: R06.02 Shortness of breath (principal); R07.89 Other chest pain; E11.40 Type 2 diabetes mellitus with diabetic neuropathy, unspecified; I10 Essential (primary) hypertension; J45.909 Unspecified asthma, uncomplicated; F32.9 Major depressive disorder, single episode, unspecified; F41.9 Anxiety disorder, unspecified; F17.200 Nicotine dependence, unspecified, uncomplicated; Z79.84 Long term (current) use of oral hypoglycemic drugs; Z79.1 Long term (current) use of non-steroidal anti-inflammatories (NSAID); Z79.51 Long term (current) use of inhaled steroids; Z79.899 Other long term (current) drug therapy; Z85.850 Personal history of malignant neoplasm of thyroid
CPT/HCPCS: 96361 ×2; 96372 ×2; 96374 ×2; 96375 ×2; 99285 ×2; 36415; 93005; 80053; 82009; 83735; 84484; 85025; 85610; 85730; 71046; J2060; J0360

== ENCOUNTER 2021-05-22 14:59 | Emergency (ER) | payer OTHER ==
[2021-05-22 15:21] LABS: Glucose,Whole Blood 159 mg/dL (75-99)
[2021-05-22 15:22] VITALS: TEMP 98
[2021-05-22] MEDS ORDERED: MECLIZINE 12.5 MG TAB PO STA (15:37)
[2021-05-22] MEDS ORDERED: SODIUM CHLORIDE 0.9% 1,000 ML IV ONE (15:37)
--- NOTE | 2021-05-22 16:22 | ED ---
General Adult HPI - General Chief complaint: Recheck/Abnormal Lab/Rx Stated complaint: Hyperglycemia, Dizziness Time Seen by Provider: 05/22/21 15:32 Source: patient, RN notes reviewed, old records reviewed Mode of arrival: wheelchair Limitations: no limitations - History of Present Illness Initial comments: 46-year-old female presents for evaluation of dizziness, lightheadedness. No chest pain or palpitations. Patient has had similar symptoms in the past associated with vertigo. She did believe today that her sugar was high as she was recently diagnosed with diabetes but has unable to obtain testing supplies as an outpatient. She has an appointment on Sunday. She does admit to polyuria and states she believes she's not been drinking enough water. No focal numbness or weakness. No headache. - Related Data Home Medications Medication Instructions Recorded Confirmed Albuterol Sulfate [Ventolin HFA] 2 puff INHALATION RT-Q6H PRN 05/09/21 05/09/21 Ergocalciferol (Vitamin D2) 1,250 mcg PO Q14D 05/09/21 05/09/21 [Drisdol (50,000 Iu)] Naproxen 500 mg PO DAILY PRN 05/09/21 05/09/21 amLODIPine [Norvasc] 5 mg PO DAILY 05/09/21 05/09/21 busPIRone HCl [Buspar] 10 mg PO BID PRN 05/09/21 05/09/21 hydroCHLOROthiazide [Hydrodiuril] 25 mg PO DAILY 05/09/21 05/09/21 metFORMIN HCL [Glucophage] 500 mg PO DAILY 05/09/21 05/09/21 Previous Rx's Medication Instructions Recorded Mometasone/Formoterol [Dulera 100 1 puff PO BID #1 inhaler 05/09/21 Mcg-5 Mcg Inhaler] Potassium Chloride ER [K-Dur 20] 20 meq PO DAILY #30 tab 05/09/21 glipiZIDE XL [Glucotrol XL] 5 mg PO DAILY #10 tab 05/09/21 methylPREDNISolone Dose Pack 4 mg PO DIRECTED #21 package 05/09/21 [Medrol Dose Pack] busPIRone HCl [Buspar] 10 mg PO BID #60 tab 05/15/21 Allergies Allergy/AdvReac Type Severity Reaction Status Date / Time acetaminophen [From Vicodin] AdvReac Nausea Verified 05/22/21 16:20 hydrocodone [From Vicodin] AdvReac Nausea Verified 05/22/21 16:20 Review of Systems ROS Statement: Those systems with pertinent positive or pertinent negative responses have been documented in the HPI. ROS Other: All systems not noted in ROS Statement are negative. Past Medical History Past Medical History: Asthma, Cancer, Diabetes Mellitus, Hypertension, Thyroid Disorder Additional Past Medical History / Comment(s): Thyroid cancer with surgery, NIDDM type II, neuropathy back of bilateral lower legs and R arm, R eye deviates since /vision is normal, low back pain/sciatica, occasional vertigo. History of Any Multi-Drug Resistant Organisms: None Reported Past Surgical History: Section, Cholecystectomy Additional Past Surgical History / Comment(s): Thyroid/90% removed, back injections. Past Anesthesia/Blood Transfusion Reactions: No Reported Reaction Past Psychological History: Anxiety, Depression Smoking Status: Current every day smoker Past Alcohol Use History: Occasional Past Drug Use History: None Reported - Past Family History Father Family Medical History: Liver Disease Additional Family Medical History / Comment(s): Father of liver cirrhosis/ETOH abuse and at the age of 56yrs. Mother Additional Family Medical History / Comment(s): Mother had anemia and of a ND at the age of 36yrs. General Exam Limitations: no limitations General appearance: alert, in no apparent distress Head exam: Present: atraumatic, normocephalic Eye exam: Present: normal appearance, PERRL ENT exam: Present: mucous membranes dry Neck exam: Present: normal inspection. Absent: tenderness, meningismus Respiratory exam: Present: normal lung sounds bilaterally. Absent: respiratory distress, wheezes, rales Cardiovascular Exam: Present: regular rate, normal rhythm GI/Abdominal exam: Present: soft. Absent: distended, tenderness, guarding, rebound Extremities exam: Present: normal inspection, normal capillary refill. Absent: pedal edema, calf tenderness Neurological exam: Present: alert, oriented X3, CN II-XII intact. Absent: motor sensory deficit Psychiatric exam: Present: normal affect, normal mood Skin exam: Present: warm, dry, intact. Absent: cyanosis, diaphoretic Course Vital Signs 05/22/21 15:16 Temperature 98.0 F Pulse Rate 79 Respiratory 16 Rate Blood Pressure 130/83 O2 Sat by Pulse 100 Oximetry EKG Findings - EKG Comments: EKG Findings:: Normal sinus rhythm, LVH, rate of 69, MI interval 150, QRS duration 80, QTC [address] segment elevation. Medical Decision Making - Medical Decision Making 46-year-old female with dizziness, history of vertigo. Patient well-appearing with stable vitals. She was concerned about her blood sugar, blood sugar is 1:30. She does have a hypokalemia 3.2 and is on potassium replacement at home. She feels completely normal after IV hydration and meclizine. She will follow with her primary care physician. - Lab Data Result diagrams: 05/22/21 16:24 05/22/21 16:24 Lab Results 05/22/21 05/22/21 05/22/21 Range/Units 15:19 16:24 16:24 WBC 9.9 (3.8-10.6) k/uL RBC 5.34 (3.80-5.40) m/uL Hgb 15.2 (11.4-16.0) gm/dL Hct 44.3 (34.0-46.0) % MCV 82.9 (80.0-100.0) fL MCH 28.4 (25.0-35.0) pg MCHC 34.3 (31.0-37.0) g/dL RDW 13.7 (11.5-15.5) % Plt Count 260 (150-450) k/uL MPV 7.5 Neutrophils % 73 % Lymphocytes % 19 % Monocytes % 5 % Eosinophils % 1 % Basophils % 1 % Neutrophils # 7.2 (1.3-7.7) k/uL Lymphocytes # 1.9 (1.0-4.8) k/uL Monocytes # 0.5 (0-1.0) k/uL Eosinophils # 0.1 (0-0.7) k/uL Basophils # 0.1 (0-0.2) k/uL Sodium 137 (137-145) mmol/L Potassium 3.2 L (3.5-5.1) mmol/L Chloride 97 L (98-107) mmol/L Carbon Dioxide 30 (22-30) mmol/L Anion Gap 10 mmol/L BUN 20 H (7-17) mg/dL Creatinine 0.82 (0.52-1.04) mg/dL Est GFR (CKD-EPI)AfAm >90 (>60 ml/min/1.73 sqM) Est GFR (CKD-EPI)NonAf 87 (>60 ml/min/1.73 sqM) Glucose 130 H (74-99) mg/dL POC Glucose (mg/dL) 159 H (75-99) mg/dL POC Glu Supervisor [employer] ID Luz Maria Parry Calcium 10.2 (8.4-10.2) mg/dL Magnesium 2.2 (1.6-2.3) mg/dL Total Bilirubin 0.2 (0.2-1.3) mg/dL AST 27 (14-36) U/L ALT 24 (4-34) U/L Alkaline Phosphatase 85 (38-126) U/L Total Protein 8.1 (6.3-8.2) g/dL Albumin 4.7 (3.5-5.0) g/dL Urine Color Urine Appearance (Clear) Urine pH (5.0-8.0) Ur Specific [place] (1.001-1.035) Urine Protein (Negative) Urine Glucose (UA) (Negative) Urine Ketones (Negative) Urine Blood (Negative) Urine Nitrite (Negative) Urine Bilirubin (Negative) Urine Urobilinogen (<2.0) mg/dL Ur Leukocyte Esterase (Negative) 05/22/21 Range/Units 16:24 WBC (3.8-10.6) k/uL RBC (3.80-5.40) m/uL Hgb (11.4-16.0) gm/dL Hct (34.0-46.0) % MCV (80.0-100.0) fL MCH (25.0-35.0) pg MCHC (31.0-37.0) g/dL RDW (11.5-15.5) % Plt Count (150-450) k/uL MPV Neutrophils % % Lymphocytes % % Monocytes % % Eosinophils % % Basophils % % Neutrophils # (1.3-7.7) k/uL Lymphocytes # (1.0-4.8) k/uL Monocytes # (0-1.0) k/uL Eosinophils # (0-0.7) k/uL Basophils # (0-0.2) k/uL Sodium (137-145) mmol/L Potassium (3.5-5.1) mmol/L Chloride (98-107) mmol/L Carbon Dioxide (22-30) mmol/L Anion Gap mmol/L BUN (7-17) mg/dL Creatinine (0.52-1.04) mg/dL Est GFR (CKD-EPI)AfAm (>60 ml/min/1.73 sqM) Est GFR (CKD-EPI)NonAf (>60 ml/min/1.73 sqM) Glucose (74-99) mg/dL POC Glucose (mg/dL) (75-99) mg/dL POC Glu Supervisor [employer] Department ID Calcium (8.4-10.2) mg/dL Magnesium (1.6-2.3) mg/dL Total Bilirubin (0.2-1.3) mg/dL AST (14-36) U/L ALT (4-34) U/L Alkaline Phosphatase (38-126) U/L Total Protein (6.3-8.2) g/dL Albumin (3.5-5.0) g/dL Urine Color Light Yellow Urine Appearance Clear (Clear) Urine pH 6.0 (5.0-8.0) Ur Specific [place] 1.008 (1.001-1.035) Urine Protein Negative (Negative) Urine Glucose (UA) Negative (Negative) Urine Ketones Negative (Negative) Urine Blood Negative (Negative) Urine Nitrite Negative (Negative) Urine Bilirubin Negative (Negative) Urine Urobilinogen <2.0 (<2.0) mg/dL Ur Leukocyte Esterase Negative (Negative) Disposition Clinical Impression: Hypokalemia, Vertigo Disposition: HOME SELF-CARE Condition: Good Instructions (If sedation given, give patient instructions): Vertigo (ED) Is patient prescribed a controlled substance at d/c from ED?: No Referrals: Etta Smith MD [Primary Care Provider] - 1-2 days Time of Disposition: 17:01
[2021-05-22 16:37] LABS: Basophils # (A) 0.1 k/uL (0-0.2); Basophils % (A) 1 %; Eosinophils # (A) 0.1 k/uL (0-0.7); Eosinophils % (A) 1 %; HCT 44.3 % (34.0-46.0); HGB 15.2 gm/dL (11.4-16.0); Lymphocytes # (A) 1.9 k/uL (1.0-4.8); Lymphocytes % (A) 19 %; MCH 28.4 pg (25.0-35.0); MCHC 34.3 g/dL (31.0-37.0); MCV 82.9 fL (80.0-100.0); Mean Platelet Volume 7.5; Monocytes # (A) 0.5 k/uL (0-1.0); Monocytes % (A) 5 %; Neutrophils # (A) 7.2 k/uL (1.3-7.7); Neutrophils % (A) 73 %; Platelet Count 260 k/uL (150-450); RBC 5.34 m/uL (3.80-5.40); RDW 13.7 % (11.5-15.5); WBC 9.9 k/uL (3.8-10.6)
[2021-05-22 16:41] LABS: Appearance,Urine Clear (Clear); Bilirubin,Urine Negative (Negative); Blood,Urine Negative (Negative); Color,Urine Light Yellow; Glucose,Urine (UA) Negative (Negative); Ketones,Urine Negative (Negative); Leukocyte Esterase,Urine Negative (Negative); Nitrite,Urine Negative (Negative); Protein,Urine Negative (Negative); Specific Gravity,Urine 1.008 (1.001-1.035); Urobilinogen,Urine <2.0 mg/dL (<2.0)
[2021-05-22 16:46] LABS: ALT 24 U/L (4-34); AST 27 U/L (14-36); African American GFR (CKD) >90 (>60 ml/min/1.73 sqM); Albumin 4.7 g/dL (3.5-5.0); Alkaline Phosphatase 85 U/L (38-126); Anion Gap 10 mmol/L; Blood Urea Nitrogen 20 mg/dL (7-17); Calcium 10.2 mg/dL (8.4-10.2); Carbon Dioxide 30 mmol/L (22-30); Chloride 97 mmol/L (98-107); Glucose 130 mg/dL (74-99); Magnesium 2.2 mg/dL (1.6-2.3); Non-African American GFR(CKD) 87 (>60 ml/min/1.73 sqM); Potassium 3.2 mmol/L (3.5-5.1); Sodium 137 mmol/L (137-145); Total Bilirubin 0.2 mg/dL (0.2-1.3); Total Protein 8.1 g/dL (6.3-8.2)
[2021-05-22] MEDS ORDERED: POTASSIUM CHLORIDE ER 20 MEQ TAB.ER PO STA (16:55)
[2021-05-22 17:55] VITALS: BP 141/98; PULSE 81; RESP 18
== END 2021-05-22 17:57 | disposition home or self-care (01) ==
LOC: EC 14:59
DX: E87.6 Hypokalemia (principal); R42 Dizziness and giddiness; E11.40 Type 2 diabetes mellitus with diabetic neuropathy, unspecified; I10 Essential (primary) hypertension; J45.909 Unspecified asthma, uncomplicated; F32.9 Major depressive disorder, single episode, unspecified; F41.9 Anxiety disorder, unspecified; F17.200 Nicotine dependence, unspecified, uncomplicated; Z79.51 Long term (current) use of inhaled steroids; Z79.84 Long term (current) use of oral hypoglycemic drugs; Z79.899 Other long term (current) drug therapy; Z88.5 Allergy status to narcotic agent
CPT/HCPCS: 36415; 80053; 81003; 83735; 85025; 93005; 96360; 99284

== ENCOUNTER 2021-06-22 12:11 | Emergency (ER) | payer OTHER ==
[2021-06-22 12:25] LABS: Glucose,Whole Blood 137 mg/dL (75-99)
[2021-06-22 12:26] VITALS: TEMP 97.7
--- NOTE | 2021-06-22 14:31 | ED ---
Dizziness HPI - General Chief Complaint: Dizziness Stated Complaint: diabetic, near syncope Source: patient, RN notes reviewed Mode of arrival: ambulatory Limitations: no limitations - History of Present Illness Initial Comments: This is a 46-year-old female presents emergency Department chief complaint of episode of dizziness. Patient has long history of vertigo. Patient states she was at [facility] states that she went to pickle processor her belongings got dizzy. She states she was was spinning she suffered she doing symptoms are resolved she's been asymptomatic ever since. Denies chest pain shortness breath focal weakness nausea vomiting. Patient was also concerned about possible hyperglycemiatissue type 2 diabetic. Patient blood sugar 134. Patient states that she feels fine and needs he back [facility]. - Related Data Home Medications Medication Instructions Recorded Confirmed Albuterol Sulfate [Ventolin HFA] 2 puff INHALATION RT-Q6H PRN 05/09/21 05/09/21 Ergocalciferol (Vitamin D2) 1,250 mcg PO Q14D 05/09/21 05/09/21 [Drisdol (50,000 Iu)] Naproxen 500 mg PO DAILY PRN 05/09/21 05/09/21 amLODIPine [Norvasc] 5 mg PO DAILY 05/09/21 05/09/21 busPIRone HCl [Buspar] 10 mg PO BID PRN 05/09/21 05/09/21 hydroCHLOROthiazide [Hydrodiuril] 25 mg PO DAILY 05/09/21 05/09/21 metFORMIN HCL [Glucophage] 500 mg PO DAILY 05/09/21 05/09/21 Previous Rx's Medication Instructions Recorded Mometasone/Formoterol [Dulera 100 1 puff PO BID #1 inhaler 05/09/21 Mcg-5 Mcg Inhaler] Potassium Chloride ER [K-Dur 20] 20 meq PO DAILY #30 tab 05/09/21 glipiZIDE XL [Glucotrol XL] 5 mg PO DAILY #10 tab 05/09/21 methylPREDNISolone Dose Pack 4 mg PO DIRECTED #21 package 05/09/21 [Medrol Dose Pack] busPIRone HCl [Buspar] 10 mg PO BID #60 tab 05/15/21 Allergies Allergy/AdvReac Type Severity Reaction Status Date / Time acetaminophen [From Vicodin] AdvReac Nausea Verified 06/22/21 12:25 hydrocodone [From Vicodin] AdvReac Nausea Verified 06/22/21 12:25 Review of Systems ROS Statement: Those systems with pertinent positive or pertinent negative responses have been documented in the HPI. ROS Other: All systems not noted in ROS Statement are negative. Past Medical History Past Medical History: Asthma, Cancer, Diabetes Mellitus, Hypertension, Thyroid Disorder Additional Past Medical History / Comment(s): Thyroid cancer with surgery, NIDDM type II, neuropathy back of bilateral lower legs and R arm, R eye deviates since /vision is normal, low back pain/sciatica, occasional vertigo. History of Any Multi-Drug Resistant Organisms: None Reported Past Surgical History: Section, Cholecystectomy Additional Past Surgical History / Comment(s): Thyroid/90% removed, back injections. Past Anesthesia/Blood Transfusion Reactions: No Reported Reaction Past Psychological History: Anxiety, Depression Smoking Status: Current every day smoker Past Alcohol Use History: Occasional Past Drug Use History: None Reported - Past Family History Father Family Medical History: Liver Disease Additional Family Medical History / Comment(s): Father of liver cirrhosis/ETOH abuse and at the age of 56yrs. Mother Additional Family Medical History / Comment(s): Mother had anemia and of a HI at the age of 36yrs. General Exam Limitations: no limitations General appearance: alert, in no apparent distress Head exam: Present: atraumatic, normocephalic, normal inspection Eye exam: Present: normal appearance, PERRL, EOMI. Absent: scleral icterus, conjunctival injection, periorbital swelling ENT exam: Present: normal exam, mucous membranes moist Neck exam: Present: normal inspection, full ROM. Absent: tenderness, meningismus, lymphadenopathy Respiratory exam: Present: normal lung sounds bilaterally. Absent: respiratory distress, wheezes, rales, rhonchi, stridor Cardiovascular Exam: Present: regular rate, normal rhythm, normal heart sounds. Absent: systolic murmur, diastolic murmur, rubs, gallop, clicks Neurological exam: Present: alert, oriented X3, CN II-XII intact, reflexes normal. Absent: motor sensory deficit Skin exam: Present: warm, dry, intact, normal color. Absent: rash Course Vital Signs 06/22/21 12:21 Temperature 97.7 F Pulse Rate 80 Respiratory 17 Rate Blood Pressure 139/95 O2 Sat by Pulse 97 Oximetry EKG Findings - EKG Comments: EKG Findings:: EKG performed at 12:33 normal sinus rhythm rate of 76 [place] 176 QRS 82 QT/ QTC 436/490 Medical Decision Making - Medical Decision Making Patient's is currently asymptomatic has a history of vertigo. Blood sugar with a normal EKG unremarkable. Patient offered workup patient declines patient is a symptomatic and states that she needs to get back to see house where she will be discharged. - Lab Data Lab Results 06/22/21 Range/Units 12:23 POC Glucose (mg/dL) 137 H (75-99) mg/dL POC Glu Driver Messenger ID Hue Marrero Disposition Clinical Impression: Vertigo Disposition: HOME SELF-CARE Condition: Stable Instructions (If sedation given, give patient instructions): Dizziness (ED) Additional Instructions: Please return to the Emergency Department if symptoms worsen or any other concerns. Is patient prescribed a controlled substance at d/c from ED?: No Referrals: Etta Smith MD [Primary Care Provider] - 1-2 days Time of Disposition: 14:30
[2021-06-22 14:56] VITALS: BP 152/98; PULSE 82; RESP 18
== END 2021-06-22 14:56 | disposition home or self-care (01) ==
LOC: EC 12:11
DX: R42 Dizziness and giddiness (principal); J45.909 Unspecified asthma, uncomplicated; E11.40 Type 2 diabetes mellitus with diabetic neuropathy, unspecified; I10 Essential (primary) hypertension; F32.9 Major depressive disorder, single episode, unspecified; F41.9 Anxiety disorder, unspecified; F17.200 Nicotine dependence, unspecified, uncomplicated; Z79.84 Long term (current) use of oral hypoglycemic drugs; Z79.51 Long term (current) use of inhaled steroids
CPT/HCPCS: 36415; 93005; 99284

== ENCOUNTER → 2022-02-07 | Outpatient (CLI) | payer OTHER ==
--- NOTE | 2022-02-07 10:57 | XR ---
EXAMINATION TYPE: XR cervical spine comp DATE OF EXAM: 02/07/2022 TECHNIQUE: Frontal, lateral, oblique, and open mouth view of the cervical spine are obtained. HISTORY: M54.2 cervicalgia chronic neck pain. COMPARISON: None FINDINGS: The cervical spine is visualized in its entirety from C1 thru the top of T1 level, it is s atisfactory in alignment without evidence of acute fracture or dislocation. The pre-vertebral soft t issue appears within normal limits. The C1-C2 articulation is within normal limits on the open mouth view. Mild multilevel anterior spurring. The oblique images are within normal limits. Overlying sof t tissue is unremarkable. IMPRESSION: As above.
--- NOTE | 2022-02-07 15:36 | US ---
EXAMINATION TYPE: US thyroid st tissue head/neck DATE OF EXAM: 02/07/2022 COMPARISON: NONE CLINICAL HISTORY: 47-year-old female E11.65 TYPE 2 DIABETES MELLITUS WITH HYPERGLYCEMIA. Type 2 diabe paul mellitus with hyperglycemia, without long-term current use of insulin. Pt states she has a histor y of thyroid cancer and part of her thyroid was removed at 21 years of age. TECHNIQUE: Multiple sonographic images of the thyroid gland were obtained. FINDINGS: GLAND SIZE: Right Lobe: 4.1 x 1.5 x 1.4 cm Overall Parenchyma: heterogenous Left Lobe: 4.0 x 1.8 x 1.9 cm Overall Parenchyma: heterogeneous Isthmus Thickness: 0.1 cm NODULES RIGHT: # of nodules measured on right: 0 Right lobe appears very heterogeneous, no nodules identified with certainty. LEFT: # of nodules measured on left: 1 1. 1.5 X 0.9 x 1.9 cm, mid solid or almost completely solid, echogenic nodule, which is taller than wide, with smooth margins, without echogenic foci. Because this is taller than wide, we are classify ing this as a TR4 nodule. Prior size: No prior. ISTHMUS: # of nodules measured in the isthmus: 0 Bilateral neck scanned, no evidence of lymphadenopathy. IMPRESSION: Solitary 1.5 cm solid TR4 nodule in the left lobe. FNA can be performed.
== END ==
LOC: CPPFTMAIN 10:24
PROVIDERS: ATTEND Family Medicine
DX: J45.30 Mild persistent asthma, uncomplicated (principal); E11.65 Type 2 diabetes mellitus with hyperglycemia; R20.2 Paresthesia of skin; M54.2 Cervicalgia; Z88.5 Allergy status to narcotic agent; Z88.6 Allergy status to analgesic agent
CPT/HCPCS: 72050; 76536; 94060; 94726; 94729

== ENCOUNTER → 2022-02-16 | Outpatient (CLI) | payer OTHER ==
--- NOTE | 2022-02-17 13:51 | MM ---
Reason for exam: screening (asymptomatic). Last mammogram was performed 1 year ago. History: Patient history of other cancer. Physical Findings: A clinical breast exam by your physician is recommended on an annual basis and results should be correlated with mammographic findings. MG Screening Mammo w CAD Bilateral CC and MLO view(s) were taken. Prior study comparison: February 03, 2021, mammogram, performed at [facility]. There are scattered fibroglandular densities. No significant changes when compared with prior studies. ASSESSMENT: Negative, BI-RAD 1 RECOMMENDATION: Routine screening mammogram of both breasts in 1 year.
== END | disposition home or self-care (01) ==
LOC: RADMAMWWP 16:16
PROVIDERS: ATTEND Family Medicine
DX: Z12.31 Encounter for screening mammogram for malignant neoplasm of breast (principal)
CPT/HCPCS: 77067

== ENCOUNTER → 2023-05-07 | Outpatient (CLI) | payer OTHER ==
--- NOTE | 2023-05-08 07:31 | CT ---
EXAMINATION TYPE: CT abdomen pelvis wo con DATE OF EXAM: 05/07/2023 COMPARISON: None HISTORY: Left flank pain CT DLP: 764.8 mGycm Examination of the solid and hollow viscera is limited given the lack of contrast. FINDINGS: LUNG BASES: No evidence for nodule. No evidence for infiltrate. LIVER/GB: The gallbladder is surgically absent. No space-occupying hepatic lesion. PANCREAS: No pancreatic mass identified. No inflammatory process seen. SPLEEN: No evidence for splenomegaly. No intrasplenic lesions seen. ADRENALS: No adrenal nodules identified. No evidence for thickening. KIDNEYS: No evidence for renal mass. No nephrolithiasis. No hydronephrosis. BOWEL: Appendix has a normal appearance. No evidence of bowel obstruction. No inflammatory process. Lymph nodes: No evidence for adenopathy greater than 1 cm. Abdominal aorta: Atheromatous changes seen. No evidence for aneurysm. Genital organs: No significant abnormality. Other: Degenerative disc disease L4-5 L5-S1. Disc bulging noted at each level. Vacuum changes SI join ts. IMPRESSION: 1. No significant abnormality to account for the patient's symptoms.
== END | disposition home or self-care (01) ==
LOC: RADCTMAIN 17:11
PROVIDERS: ATTEND Family Medicine
DX: I10 Essential (primary) hypertension (principal); M51.36 Other intervertebral disc degeneration, lumbar region; R10.9 Unspecified abdominal pain
CPT/HCPCS: 74176

== ENCOUNTER 2024-01-07 11:55 | Day surgery (SDC) | payer OTHER ==
[2024-01-03 10:30] VITALS: BMI 39.4
[~2024-01-07 11:55] MED LIST: LIDOCAINE 1% (10MG/ML) FOR IV START INTRADERMA PRN
[2024-01-07 12:34] VITALS: TEMP 97.8
[2024-01-07 12:51] LABS: Glucose,Whole Blood 105 mg/dL (70-110)
[2024-01-07] MEDS: LACTATED RINGERS 1,000 ML IV SCH (12:51)
[2024-01-07] MEDS ORDERED: PROPOFOL 10 MG/ML 20 ML VIAL IV ONE (13:23)
--- NOTE | 2024-01-07 13:48 | P.OP ---
Date of Procedure: 01/07/24 Preoperative Diagnosis: GI bleed Postoperative Diagnosis: Large left colon polyp Procedure(s) Performed: colonoscopy Anesthesia: MAC Surgeon: Bart Barreto Pathology: other (Left colon polyp) Condition: stable Disposition: PACU Description of Procedure: Patient was placed on the endoscopy table lateral position. She received IV sedation. Digital rectal exam was performed. This revealed no antibiotics. The flexible colonoscope was then placed patient anus and passed throughout the colon. Ileocecal valve was visualized. The cecum, ascending and transverse colon appeared normal. The descending and sigmoid colon had moderate diverticuli. In the descending colon at the 40 cm kevin there was a large pedunculated polyp. This removed with a snare. Scope was brought back and sigmoid colon there was diverticular changes noted. Scope was then repacked the rectum this appeared normal. The scope was withdrawn from the patient.
[2024-01-07 13:55] LABS: Glucose,Whole Blood 102 mg/dL (70-110)
[2024-01-07 14:05] VITALS: BP 119/84; PULSE 70; RESP 16
== END 2024-01-07 14:24 | disposition home or self-care (01) ==
LOC: ORWHC2ENDO 11:55
PROVIDERS: ATTEND Surgery
DX: D12.4 Benign neoplasm of descending colon (principal); K57.30 Diverticulosis of large intestine without perforation or abscess without bleeding; I10 Essential (primary) hypertension; J45.909 Unspecified asthma, uncomplicated; E11.9 Type 2 diabetes mellitus without complications; E03.9 Hypothyroidism, unspecified; M19.90 Unspecified osteoarthritis, unspecified site; Z98.890 Other specified postprocedural states; Z79.899 Other long term (current) drug therapy
CPT/HCPCS: 81025; 88305; 45385; J2704

== ENCOUNTER → 2024-12-18 | Outpatient (CLI) | payer OTHER ==
--- NOTE | 2024-12-18 13:27 | MM ---
Reason for Exam: Screening (asymptomatic). Last mammogram was performed 1 year(s) and 4 month(s) ago. Patient History: Menarche at age 12. First Full-Term at age 21. Postmenopausal. Other cancer. Risk Values: Hazel 5 year model risk: 1.0%. NCI Lifetime model risk: 8.9%. Prior Study Comparison: 02/03/2021 Screening Mammogram, [facility]. 02/16/2022 Bilateral Screening Mammogram, [facility]. 08/24/2023 Bilateral MG screening mammo w CAD, [facility]. Tissue Density: There are scattered areas of fibroglandular density. Findings: Analyzed By CAD. There is no suspicious group of microcalcifications or new suspicious mass in either breast. Overall Assessment: Negative, BI-RAD 1 Management: Screening Mammogram of both breasts in 1 year. Patient should continue monthly self-breast exams. A clinical breast exam by your physician is recommended on an annual basis. This exam should not preclude additional follow-up of suspicious palpable abnormalities. Note on Hazel scores and lifetime risk: 1. A Hazel score greater than 3% is considered moderate risk. If this is the case, consider specialist referral to assess eligibility for a risk reducing agent. 2. If overall lifetime risk for the development of breast cancer is 20% or higher, the patient may qualify for future screening with alternating mammogram and breast MRI. [facility], , 12/18/2024 1:24 PM. Electronically signed and approved by: Shasha Forrest M.D. Radiologist
== END | disposition home or self-care (01) ==
LOC: RADMAMWWP 12:58
PROVIDERS: ATTEND Family Medicine
DX: Z12.31 Encounter for screening mammogram for malignant neoplasm of breast (principal); R92.323 Mammographic fibroglandular density, bilateral breasts; Z78.0 Asymptomatic menopausal state
CPT/HCPCS: 77067